=== PATIENT | female | born 1985 | race African-American/Black ===

== ENCOUNTER 2017-10-27 13:50 | Observation (INO) | payer MEDICAID ==
[~2017-10-27] VITALS: Ht 162.6 cm; Wt 114.0 kg
[2017-10-27] MEDS ORDERED: HYDROmorphone 1 MG/ML, 1ML IVPush PRN ×2 (14:00→15:00)
[2017-10-27] MEDS ORDERED: SODIUM CHLORIDE FLUSH 10ML SYR IVF ONE (14:00)
[2017-10-27] MEDS ORDERED: ONDANSETRON 2MG/ML, 2ML IVPush ONE (14:00)
[2017-10-27] MEDS ORDERED: PROPOFOL 10 MG/ML, 20ML ONE ×2 (14:34→15:46)
[2017-10-27] MEDS ORDERED: SODIUM CHLORIDE 0.9% 1,000 ML IV ONE (14:55)
[2017-10-27] MEDS ORDERED: ONDANSETRON 2MG/ML, 2ML IVPush PRN ×2 (15:00→17:30)
[2017-10-27] MEDS ORDERED: PROPOFOL 10 MG/ML, 20ML IVPush ONE (15:00)
[2017-10-27] MEDS ORDERED: SODIUM CHLORIDE FLUSH 10ML SYR IVF PRN (15:00)
[2017-10-27] MEDS ORDERED: HYDROmorphone 2 MG/ML, 1ML ONE (15:07)
[2017-10-27] MEDS ORDERED: FENTANYL PF 100 MCG/2ML ONE (15:46)
[2017-10-27] MEDS ORDERED: MIDAZOLAM 1 MG/ML, 2ML ONE (15:46)
[2017-10-27] MEDS ORDERED: SODIUM CHLORIDE 0.9% PF 10ML ONE (15:48)
[2017-10-27] MEDS ORDERED: DEXAMETHASONE 4 MG/ML, 1ML ONE ×2 (15:48→15:49)
[2017-10-27] MEDS ORDERED: ONDANSETRON 2MG/ML, 2ML ONE ×2 (15:49)
[2017-10-27] MEDS ORDERED: EPINEPHRINE 1 MG/ML, 1ML ONE (15:51)
[2017-10-27] MEDS ORDERED: cloniDINE/PF 100 MCG/ML, 10 ML ONE (15:53)
[2017-10-27] MEDS ORDERED: PROMETHAZINE 25 MG/ML, 1ML ONE (16:17)
[2017-10-27 16:34] LABS: HCG UR SG 1.013 (1.003-1.030)
[2017-10-27] MEDS ORDERED: CEFAZOLIN 1,000 MG ONE (16:54)
[2017-10-27] MEDS ORDERED: hydrALAzine 20 MG/ML, 1ML IV PRN (17:30)
[2017-10-27] MEDS ORDERED: ACETAMINOPHEN 325 MG TABLET PO PRN (17:30)
[2017-10-27] MEDS ORDERED: OXYcodone 5 MG/5 ML ORAL.SOL UDC PO PRN (17:30)
[2017-10-27] MEDS ORDERED: MEPERIDINE/PF 25MG/0.5ML IVPush PRN (17:30)
[2017-10-27] MEDS ORDERED: FENTANYL PF 100 MCG/2ML IV PRN (17:30)
[2017-10-27] MEDS ORDERED: KETOROLAC 30 MG/1 ML ONE (17:30)
[2017-10-27] MEDS ORDERED: HYDROmorphone 1 MG/ML, 1ML IV PRN (17:30)
[2017-10-27] MEDS ORDERED: PROMETHAZINE 12.5 MG SUPP PR PRN (17:30)
[2017-10-27] MEDS ORDERED: LABETALOL 5MG/ML, 20ML IV PRN (17:30)
[2017-10-27 18:47] VITALS: BP 139/94
[2017-10-27] MEDS ORDERED: OXYcodone/APAP 5/325MG TABLET PO PRN (19:00)
[2017-10-27] MEDS ORDERED: ONDANSETRON 2MG/ML, 2ML IV PRN (19:00)
[2017-10-27] MEDS ORDERED: morphine SULFATE 10 MG/ML, 1ML IV PRN (19:00)
[2017-10-27] MEDS ORDERED: BUPR150T8 PO (20:00)
[2017-10-27] MEDS ORDERED: birth control pill PO (20:00)
[2017-10-27 23:49] VITALS: BP 106/58
[2017-10-28 04:00] VITALS: BP 111/62
[2017-10-28 07:13] VITALS: BP 110/67
== END 2017-10-28 11:00 | disposition home or self-care (01) ==
LOC: OR 15:17 → EDIP 15:20 → INTOOBSV 15:20 → 4NOR 15:35
PROVIDERS: ADMIT Orthopaedic Surgery; ATTEND Orthopaedic Surgery
DX: S82.62XA Displaced fracture of lateral malleolus of left fibula, initial encounter for closed fracture (principal); X50.1XXA Overexertion from prolonged static or awkward postures, initial encounter; Y93.89 Activity, other specified; Y92.89 Other specified places as the place of occurrence of the external cause; Y99.8 Other external cause status
CPT/HCPCS: 27788; 73600; 73610; 76000; 81025; 96374; 99152; 99153; 99285; C1713; G0378; J0171; J0690; J0735; J1100; J1170; J1885; J2250; J2405; J2704; J3010; J7030

== ENCOUNTER 2018-07-07 11:25 | Emergency (ER) | payer MEDICAID ==
[~2018-07-07] VITALS: Ht 162.6 cm; Wt 105.1 kg
[~2018-07-07 11:25] MED LIST: BUPR150T8 PO; birth control pill PO
[2018-07-07 11:57] VITALS: BP 157/98
[2018-07-07] MEDS ORDERED: DEXAMETHASONE 4 MG/ML, 5ML ONE (12:26)
[2018-07-07] MEDS ORDERED: DEXAMETHASONE 4 MG/ML, 1ML PO ONE (12:30)
[2018-07-07] MEDS ORDERED: PHEN15CA2 PO (12:32)
== END 2018-07-07 13:21 | disposition home or self-care (01) ==
LOC: ED 13:15
DX: J02.8 Acute pharyngitis due to other specified organisms (principal); B97.89 Other viral agents as the cause of diseases classified elsewhere
CPT/HCPCS: 87081; 87147; 87880; 99284; J1100

== ENCOUNTER 2019-04-22 03:03 | Emergency (ER) | payer MEDICAID ==
[~2019-04-22] VITALS: Ht 162.6 cm; Wt 105.0 kg
[~2019-04-22 03:03] MED LIST changes: +PHEN15CA2 PO
--- NOTE | 2019-04-22 03:16 | NUR ---
THE PT HAS BROUGHT IN HER PILLOW AND COMFORTER AND MADE UP THE STRETCHER AND TURNED THE LIGHTS DOWN. CALL LIGHT IN REACH.
--- NOTE | 2019-04-22 03:20 | NUR ---
THROAT SWAB COLLECTED BY ALEXANDRA AND SENT TO LAB BY MYLES.
[2019-04-22] MEDS ORDERED: IBUPROFEN 200 MG TABLET PO ONE (03:30)
[2019-04-22] MEDS ORDERED: DEXAMETHASONE 4 MG TABLET PO ONE (03:30)
[2019-04-22] MEDS ORDERED: DEXAMETHASONE 4 MG TABLET ONE (03:43)
[2019-04-22] MEDS ORDERED: IBUPROFEN 600 MG TABLET ONE (03:43)
[2019-04-22 04:03] VITALS: BP 128/79
--- NOTE | 2019-04-22 04:09 | NUR ---
D/C INST REVIEWED W/ THE PT TO INCLUDE FLUIDS. WARM NA GARGLE. WORK NOTE FOR 2 DAYS GIVEN TO THE PT. THE PT VERB UNDERSTANDING AND DENIES QUESTIONS.
== END 2019-04-22 04:13 | disposition home or self-care (01) ==
LOC: ED 04:07
DX: J02.8 Acute pharyngitis due to other specified organisms (principal); B97.89 Other viral agents as the cause of diseases classified elsewhere; R11.2 Nausea with vomiting, unspecified; R19.7 Diarrhea, unspecified
CPT/HCPCS: 87081; 87880; 99283

== ENCOUNTER 2019-11-03 20:21 | Emergency (ER) | payer MEDICAID ==
[~2019-11-03] VITALS: Ht 175.3 cm; Wt 113.3 kg
[2019-11-03 20:46] VITALS: BP 146/95
[2019-11-03] MEDS ORDERED: IBUPROFEN 200 MG TABLET PO ONE (21:30)
[2019-11-03] MEDS ORDERED: IBUPROFEN 200 MG TABLET ONE (21:36)
== END 2019-11-03 22:05 | disposition home or self-care (01) ==
LOC: ED 22:03
DX: K04.7 Periapical abscess without sinus (principal); K02.9 Dental caries, unspecified
CPT/HCPCS: 99283

== ENCOUNTER 2020-07-23 10:56 | Emergency (ER) | payer MEDICAID ==
[~2020-07-23] VITALS: Ht 162.6 cm; Wt 110.4 kg
[2020-07-23] MEDS ORDERED: ONDANSETRON ODT 4 MG ONE ×2 (11:08→12:37)
[2020-07-23] MEDS ORDERED: ONDANSETRON ODT 4 MG PO ONE (11:30)
[2020-07-23 11:45] LABS: BASOPHILS % (AUTO) 0 % (0-1); EOSINOPHILS % (AUTO) 1 % (1-7); LYMPHOCYTES % (AUTO) 17 % (22-44); MD NO; MEAN CORPUSCULAR HEMOGLOBIN 28.9 pg (27.0-34.8); MEAN CORPUSCULAR HGB CONC 33.7 g/dL (32.4-35.8); MEAN PLATELET VOLUME 8.2 fL (7.4-10.4); MONOCYTES % (AUTO) 5 % (2-9); NEUTROPHILS % (AUTO) 77 % (42-75); PLATELET COUNT 293 x10^3/uL (130-400); RED BLOOD COUNT 5.07 x10^6/uL (3.82-5.3); RED CELL DISTRIBUTION WIDTH 13.1 % (9.6-15.2)
[2020-07-23 11:58] LABS: CHLORIDE 111 mmol/L (98-107)
[2020-07-23 12:10] LABS: ALANINE AMINOTRANSFERASE 52 U/L (12-78); ALBUMIN 3.7 g/dL (3.4-5.0); ALKALINE PHOSPHATASE 70 U/L (45-117); ANION GAP 3 mmol/L (5-15); BILIRUBIN,TOTAL 0.6 mg/dL (0.2-1.0); CALCIUM 9.3 mg/dL (8.5-10.1); CREATININE 0.84 mg/dL (0.55-1.02); TOTAL PROTEIN 8.4 g/dL (6.4-8.2)
--- NOTE | 2020-07-23 12:32 | NUR ---
TREASURY DIRECTOR: PT TO ROOM FROM [facility]
--- NOTE | 2020-07-23 12:38 | NUR ---
PATIENT WALKED BACK FROM TRIAGE WITH CHIEF C/O ABD PAIN AND NAUSEA. PATIENT STATES SHE HAD ONE EPISODE OF EMESIS LAST NIGHT AROUND MIDNIGHT. PATIENT REPORTS EATING AT [facility] "ABOUT 0700 PM LAST NIGHT, I'M NOT SURE IF ITS SOMETHING I ATE." PATIENT STATES HER ABD PAIN IS IN THE EPIGASTRIC AREA AND IS A 6/10 RIGHT NOW, PATIENT ALSO REPORTING MID BACK PAIN WELL. PATIENT DENIES FEVER, NO DIARRHEA AND NO PAIN WITH URINATION. NO SIGNS OF ACUTE DISTRESS, CONNECTED TO VITALS MACHINE, CALL LIGHT WITHIN REACH.
--- NOTE | 2020-07-23 13:22 | NUR ---
PATIENT AMBULATED TO BATHROOM TO LEAVE URINE SAMPLE WITH STEADY GAIT.
--- NOTE | 2020-07-23 13:37 | NUR ---
URINE SAMPLE COLLECTED AND SENT TO LAB. SALON LEADER AT BEDSIDE.
[2020-07-23 13:57] VITALS: BP 111/59
--- NOTE | 2020-07-23 13:58 | NUR ---
PATIENT RESTING IN [facility] ON PHONE, REPORTS RELIEF OF HER NAUSEA, CONNECTED TO VITALS MACHINE, NO SIGNS OF ACUTE DISTRESS, CALL LIGHT WITHIN REACH, NO FURTHER NEEDS AT THIS TIME.
[2020-07-23 14:07] LABS: MICROSCOPIC AUTO
--- NOTE | 2020-07-23 14:33 | NUR ---
BREAK RN FOR PRIMARY RN FLOYD. PT TO BE DISCHARGED, DR. ENGLAND AT BEDSIDE FOR RECHECK, DISCUSSING TEST RESULTS AND DISCHARGE POC.
--- NOTE | 2020-07-23 15:07 | NUR ---
Patient/Caregiver given discharge instructions and they have confirmed that they understand the instructions. Patient ambulatory with steady gait.
== END 2020-07-23 15:09 | disposition home or self-care (01) ==
LOC: ED 12:30
DX: R11.2 Nausea with vomiting, unspecified (principal); R10.11 Right upper quadrant pain
CPT/HCPCS: 36415; 76700; 80053; 81001; 83690; 84703; 85025; 87086; 99284; Q0162